=== PATIENT | male | born 1950 | race Caucasian/White ===

== ENCOUNTER → 2021-06-13 | Outpatient (CLI) | payer MEDICARE ==
[2021-06-13 17:37] LABS: HEMOGLOBIN 10.6 gm/dl (14.0-17.5); RED BLOOD COUNT 3.65 M/UL (4.20-5.50); WHITE BLOOD COUNT 6.3 K/UL (4.5-11.0)
== END ==
LOC: LBRF 15:54
PROVIDERS: Family Medicine
DX: E11.69 Type 2 diabetes mellitus with other specified complication (principal); M86.659 Other chronic osteomyelitis, unspecified thigh; I50.9 Heart failure, unspecified; D50.9 Iron deficiency anemia, unspecified; C18.9 Malignant neoplasm of colon, unspecified
CPT/HCPCS: 80048; 82550; 85025; 85652; 86140

== ENCOUNTER 2021-10-15 09:36 | Emergency (ER) | payer MEDICARE ==
[2021-10-15 10:20] LABS: HEMOGLOBIN 8.4 gm/dl (14.0-17.5); RED BLOOD COUNT 3.11 M/UL (4.20-5.50); WHITE BLOOD COUNT 6.2 K/UL (4.5-11.0)
[2021-10-15 10:43] LABS: BUN/CREATININE RATIO 34 (0-10)
== END 2021-10-15 14:43 | disposition home or self-care (01) ==
LOC: ER1 09:36
PROVIDERS: Family Medicine
DX: R58 Hemorrhage, not elsewhere classified (principal); I13.0 Hypertensive heart and chronic kidney disease with heart failure and stage 1 through stage 4 chronic kidney disease, or unspecified chronic kidney disease; N17.8 Other acute kidney failure; N18.9 Chronic kidney disease, unspecified; R09.02 Hypoxemia; E11.22 Type 2 diabetes mellitus with diabetic chronic kidney disease; R60.0 Localized edema; D64.9 Anemia, unspecified; Z79.82 Long term (current) use of aspirin
CPT/HCPCS: 80053; 82550; 82553; 83605; 83874; 84484; 85025; 85610; 86850; 86900; 86901; 93005; 99283

== ENCOUNTER 2021-10-21 10:27 | Emergency (ER) | payer MEDICARE ==
[2021-10-21 11:43] LABS: HEMOGLOBIN 7.8 gm/dl (14.0-17.5); RED BLOOD COUNT 2.84 M/UL (4.20-5.50); WHITE BLOOD COUNT 7.1 K/UL (4.5-11.0)
== END 2021-10-21 18:25 | disposition home or self-care (01) ==
LOC: ER1 10:27
PROVIDERS: Family Medicine
DX: E11.622 Type 2 diabetes mellitus with other skin ulcer (principal); L98.499 Non-pressure chronic ulcer of skin of other sites with unspecified severity; N18.9 Chronic kidney disease, unspecified; E11.22 Type 2 diabetes mellitus with diabetic chronic kidney disease; D64.9 Anemia, unspecified; Z79.82 Long term (current) use of aspirin
CPT/HCPCS: 80053; 85025; 86850; 86900; 86901; 93005; 99284

== ENCOUNTER → 2022-01-10 | Outpatient (CLI) | payer MEDICARE | LOC: KOH-I 15:53 | DX: R10.9 Unspecified abdominal pain (principal) | CPT/HCPCS: 76775 ==